=== PATIENT | male | born 2005 | race Caucasian/White ===

== ENCOUNTER → 2023-01-23 10:25 | Outpatient (CLI) | payer BC, SELFPAY ==
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
== END ==
PROVIDERS: PCP Nurse Practitioner Psychiatric/Mental Health; Visit Provider Nurse Practitioner Psychiatric/Mental Health
DX: R68.84 Jaw pain (principal)
CPT/HCPCS: 70150; 70330